=== PATIENT | female | born 1950 | race Caucasian/White ===

== ENCOUNTER 2022-05-28 07:23 | Day surgery (SDC) | payer MEDICARE ==
[~2022-05-28] VITALS: Ht 149.9 cm; Wt 75.4 kg
[~2022-05-28 07:23] MED LIST: ATEN100T92 PO; CeFAZolin 2 GM/DEXTROSE 50 ML IV ONE; LISI-892 PO; RINGERS SOLUTION,LACTATED 1,000 ML IV ONE
[2022-05-28] MEDS ORDERED: RINGERS SOLUTION,LACTATED 1,000 ML IV ONE (07:30)
[2022-05-28 07:46] LABS: COVID AG,FIA SOURCE NASAL SWAB
[2022-05-28] MEDS ORDERED: LIDOCAINE 1%/EPI 1:200,000/PF 30 ML VIAL ONE (08:37)
[2022-05-28] MEDS ORDERED: SODIUM CL IRRIG SOLN BAG 3,000 ML IRRIG ONE (08:38)
[2022-05-28] MEDS ORDERED: BUPIVACAINE HCL/PF 0.5% 30 ML VIAL ONE (08:38)
[2022-05-28 09:01] LABS: GLUCOMETER DEV NAME(LOC) SDS.; GLUCOSE,POINT OF CARE 85 MG/DL (70-110)
[2022-05-28] MEDS ORDERED: IOHEXOL 240 MG/ML 20 ML VIAL ONE (09:15)
[2022-05-28] MEDS ORDERED: CeFAZolin 2 GM/DEXTROSE 50 ML IV ONE (09:30)
[2022-05-28] MEDS ORDERED: IBUPROFEN 800 MG TABLET PO PRN (10:30)
[2022-05-28] MEDS ORDERED: ACETAMINOPHEN 500 MG TABLET PO PRN (10:30)
[2022-05-28] MEDS ORDERED: FentaNYL CITRATE PF 100 MCG/2 ML VIAL IVP PRN (10:45)
[2022-05-28] MEDS ORDERED: HYDROmorphone HCL 2 MG/ML SYRINGE ONE (10:47)
[2022-05-28] MEDS: HYDROmorphone HCL 2 MG/ML SYRINGE IVP PRN ×3 (10:48→11:21)
[2022-05-28] MEDS ORDERED: MIDAZOLAM HCL 2 MG/2 ML VIAL IVP ONE (12:00)
[2022-05-28] MEDS ORDERED: FentaNYL CITRATE PF 100 MCG/2 ML VIAL IVP ONE (12:00)
[2022-05-28] MEDS ORDERED: OXYGEN THERAPY IH SCH (20:00)
== END 2022-05-28 12:40 | disposition home or self-care (01) ==
LOC: SURGERY 07:23
PROVIDERS: ATTEND Surgery
DX: K80.10 Calculus of gallbladder with chronic cholecystitis without obstruction (principal); I10 Essential (primary) hypertension; E78.5 Hyperlipidemia, unspecified; Z20.822 Contact with and (suspected) exposure to COVID-19; Z90.710 Acquired absence of both cervix and uterus
CPT/HCPCS: 82962; 93005; 87426; 47562; J3490 ×2; J1170; J7120; J0690; Q9966; C9803; J2250; J3010